=== PATIENT | male | born 2000 | race Two or more races ===

== ENCOUNTER 2024-08-28 04:14 | Emergency (ER) | payer SELFPAY ==
[2024-08-28 04:15] VITALS: BP 148/90; PULSE 72; RESP 20; TEMP 36.7; O2SAT 97
[2024-08-28 04:16] VITALS: BMI 24.7
--- NOTE | 2024-08-28 04:49 | XR_ITS ---
Examination: Hand, left 3 views Technique: Hand AP, oblique, lateral 3 views Date and time of exam: August 28, 2024 0455 hours INDICATIONS: Injury to the hand today, hand pain FINDINGS: No acute fracture. No dislocation. No foreign body IMPRESSION: No acute fracture
--- NOTE | 2024-08-28 04:52 | EDNOTE_ITS ---
<Statement entered by Nissa Steele MD - 09/08/24 21:08> As co-signing physician, I was present and available for consult prn. I concur with the plan and care as documented by the midlevel provider. Upper Extremity Injury RME/HPI General Chief Complaint: Hand/Wrist Problems Stated Complaint: WORK INJURY, LEFT HAND SWELLING Time Seen by Provider: 08/28/24 04:48 Arrival date/time: 08/28/24 04:14 24M with no significant PMH presents to ED with L hand pain/swelling after he accidentally hit it with some tool at work. Patient denies open wound/bleeding. Limitations: no limitations Related Data Allergies Allergy/AdvReac Type Severity Reaction Status Date / Time egg Allergy Rash Verified 08/28/24 04:15 Review of Systems Review of Systems Systems Reviewed: All systems reviewed, normal except as documented Constitutional Constitutional: Reports system reviewed and no additional complaints, except as documented, Denies fever(s) and Denies headache(s) ENT Ears, Nose, Mouth, and Throat: Denies disequilibrium and Denies headache(s) Cardiovascular Cardiovascular: Reports system reviewed and no additional complaints, except as documented, Denies chest pain and Denies dyspnea Respiratory Respiratory: Reports system reviewed and no additional complaints, except as documented, Denies cough and Denies dyspnea Gastrointestinal Gastrointestinal: Reports system reviewed and no additional complaints, except as documented, Denies abdominal pain, Denies nausea and Denies vomiting Musculoskeletal Musculoskeletal: Reports as per HPI and Reports arthralgias Neurologic Neurologic: Reports system reviewed and no additional complaints, except as documented, Denies confusion, Denies disequilibrium and Denies headache(s) Psychiatric Psychiatric: Denies confusion Past Medical History Social History SMOKING STATUS: Former smoker ED Exam General Limitations: Present no limitations General appearance: Present alert and in no apparent distress Head Head exam: Present atraumatic Eye Eye exam: Present normal appearance, PERRL and EOMI ENT ENT exam: Present normal exam, normal oropharynx and mucous membranes moist Neck Neck exam: Present normal inspection, full ROM and trachea midline Chest Chest inspection: Present normal inspection and symmetric chest wall rise Respiratory Respiratory exam: Present normal lung sounds bilaterally Cardiovascular Cardiovascular exam: Present regular rate, normal rhythm and normal heart sounds Abdominal Exam Abdominal exam: Present soft and normal bowel sounds Extremities Exam Extremities exam: Present full ROM Expanded Upper Extremity Exam Hand exam: Present full ROM (L), tenderness, swelling and ecchymosis Back Exam Back exam: Present normal inspection and full ROM Neurological Exam Neurological exam: Present alert, oriented X3 and CN II-XII intact Psychiatric Psychiatric exam: Present normal affect and normal mood Skin Skin exam: Present warm, dry, intact and normal color Course Quality Measures none Orders Category Date Time Status XR hand comp LT min 3V Stat Exams 08/28/24 04:49 Taken Vital Signs Vital signs: Vital Signs Temperature 98.0 F 08/28/24 04:15 Pulse Rate 72 08/28/24 04:15 Respiratory Rate 20 08/28/24 04:15 Blood Pressure 148/90 H 08/28/24 04:15 Pulse Oximetry (%) 97 08/28/24 04:15 Oxygen Delivery Method Room Air 08/28/24 04:15 O2 at 97% on RA and WNLs Extremity Injury MDM Narrative MDM Narrative:: 24M with no significant PMH presents to ED with L hand pain/swelling after he accidentally hit it with some tool at work. Patient denies open wound/bleeding. Physical exam reveals L hand bruising, swelling, and mild tenderness near base of index finger. No snuffbox tenderness. ROM intact. Patient is afebrile, calm, and alert. Wet XR read no fx pending official report. [employer] Assembly [employer] given. Patient data External records reviewed:: None Clinical information provided by:: patient Social determinants that could affect healthcare access:: none Patient has the following chronic illnesses:: none How is presenting disease/condition affected by chronic disease/condition?: no chronic disease Evaluation data The following diagnostics were reviewed and interpreted by me:: radiology exam(s) Lab and/or radiology exams considered but not ordered:: ordered Interpretation Summary: above Medications / Prescriptions Medications or Prescriptions considered but not ordered:: not ordered Medication administrations:: n/a Consultations Consultation(s) initiated? (list below): No Diagnosis Upper Extremity Injury Differential Diagnosis: sprain and strain of wrist, fracture of wrist, finger sprain, dislocation of finger, Colles' fracture, fracture of hand and other (hand pain) Most likely diagnosis given after review of the tests above:: hand pain Admission Indicated Admission indicated?: not indicated Admission Request Was there a request for admission?: No Disposition Plan Disposition Plan: Discharge Discharge Attestation Discharge Attestation: The patient and all family members were given an opportunity to ask questions and understood the discharge instructions. Discharge instructions specifically effects, indications for sooner follow up or return to the emergency department, and the expected course of current diagnosis. Patient condition: Stable Discharge Plan Plan Patient Disposition: HOME (Self Care) Discharge Disposition comment: Stable Prescriptions/Referrals Referrals: No Primary/Family,Physician [Primary Care Provider] - In 1 week Problem List Clinical Impression: Hand pain Patient/Caregiver Discharge Instructions Education Materials: ED Hand Contusion Additional Instructions: Please follow-up with PCP within 24-48 hours and return immediately if symptoms worsen. If problem persists, recommend outpatient PT and/or MRI follow-up. In the meantime, rest, use ice/heat, and/or compression. Print Language: Bel[place]ian Stand Alone Forms: Patient Portal Info Letter CELY/ILA Supervising Physician CELY/ILA Supervising Physician: Dr. Steele
[2024-08-28 05:46] VITALS: BP 139/92; PULSE 75; RESP 17; TEMP 36.7; O2SAT 100
== END 2024-08-28 05:52 | disposition home or self-care (01) ==
PROVIDERS: Emergency Provider Emergency Medicine
DX: M79.642 Pain in left hand (principal)
CPT/HCPCS: 73130; 99283